=== PATIENT | female | born 1995 | race African-American/Black ===

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

== ENCOUNTER 2017-01-04 07:40 | Emergency (ER) | payer MEDICAID ==
[~2017-01-04] VITALS: Ht 162.6 cm; Wt 84.0 kg
[~2017-01-04 07:40] MED LIST changes: +CIPROFLOXACN0.3 % OD
[2017-01-04 08:24] LABS: HEMOGLOBIN 12.6 g/dl (12.0-16.0); IMMATURE GRANULOCYTES 0.3 % (0.0-1.0); MEAN CELL VOLUME 91.8 fL CALC (80.0-100.0); MEAN CORPUSCULAR HGB 31.3 pG CALC (26.0-32.0); MEAN CORPUSCULAR HGB CONC 34.1 g/L CALC (32.0-36.0); NEUT# 2.92 thou/uL (2.00-7.15); RED BLOOD COUNT 4.03 mill/uL (4.20-5.60)
[2017-01-04 08:25] LABS: URINE BLOOD DIPSTICK TRACE-INTACT (NEGATIVE); URINE COLOR YELLOW; URINE GLUCOSE - DIPSTICK NEGATIVE (NEGATIVE); URINE KETONE NEGATIVE (NEGATIVE); URINE LEUK ESTERASE NEGATIVE (NEGATIVE); URINE NITRITE - DIPSTICK NEGATIVE (Negative); URINE PROTEIN - DIPSTICK TRACE mg/dL (NEG-TRACE); URINE SPECIFIC GRAVITY >=1.030; URINE UROBILINOGEN - DIPSTICK 0.2 E.U./dL (0.2)
[2017-01-04 08:31] LABS: URINE BILIRUBIN - DIPSTICK SMALL (NEGATIVE)
[2017-01-04 08:32] LABS: URINE CLARITY SLIGHT CLOUDY
[2017-01-04 08:39] LABS: ALBUMIN 4.3 g/dL (3.2-5.0); ALKALINE PHOSPHATASE 49 u/l (38-126); AMYLASE 76 u/l (30-110); ANION GAP 14 (6-22 (CALC)); BILIRUBIN, TOTAL 0.6 mg/dL (0.0-1.4); BUN 9 mg/dL (8-21); BUN/CREATININE RATIO 11 (12-20 (CALC)); CALCIUM 9.6 mg/dL (8.4-10.2); CARBON DIOXIDE 24 mmol/l (22-30); CHLORIDE 103 mmol/l (95-108); CREATININE 0.8 mg/dL (0.5-1.0); GFR > 60 ML/MIN (>=60 (CALC)); GFR FOR AFR.AMER. > 60 ML/MIN (>=60 (CALC)); GLUCOSE 97 mg/dL (70-106); LIPASE 46 u/l (23-300); POTASSIUM 3.6 mmol/l (3.5-5.1); SGOT/AST 13 u/l (14-36); SGPT/ALT 25 u/l (9-52); SODIUM 138 mmol/l (137-146); TOTAL PROTEIN 7.8 g/dL (6.3-8.2)
[2017-01-04] MEDS ORDERED: MOTRIN800 MG PO (10:37)
[2017-01-04 10:44] VITALS: BP 109/65
== END 2017-01-04 10:50 | disposition home or self-care (01) | DRG 392 ==
LOC: ED 07:40
PROVIDERS: Emergency Medicine
DX: R10.30 Lower abdominal pain, unspecified (principal); J45.909 Unspecified asthma, uncomplicated